=== PATIENT | female | born 1955 | race Caucasian/White ===

== ENCOUNTER 2021-09-18 09:10 | Day surgery (SDC) | payer MEDICARE ==
[2021-09-16 13:39] VITALS: BMI 32.4
[2021-09-18 09:49] LABS: Hemoglobin 13.2 g/dL (12.0-16.0)
[2021-09-18 10:17] LABS: Anion Gap 14 mmol/L (10-20); BUN (Urea Nitrogen) 16 mg/dL (9.8-20.1); Calc. Creatinine Clearance 97 mL/min (70-130); Calcium 9.3 mg/dL (7.8-10.44); Carbon Dioxide 23 mmol/L (23-31); Chloride 109 mmol/L (98-107); Glucose 102 mg/dL (80-115); Potassium 4.1 mmol/L (3.5-5.1); Sodium 142 mmol/L (136-145)
[2021-09-18] MEDS ORDERED: Ferric Subsulfate (ASTRINGYN) 8 GM VIAL ONE (10:52)
[2021-09-18] MEDS ORDERED: fentaNYL Citrate/PF 100 MCG/2 ML SYRINGE ONE ×2 (11:00→12:15)
[2021-09-18] MEDS ORDERED: Famotidine/PF 20 mg/2ml Vial ONE (11:00)
[2021-09-18] MEDS ORDERED: Ondansetron PF 4 MG/2 ML Vial ONE (11:09)
[2021-09-18] MEDS ORDERED: Metoprolol Tartrate 5 MG/5 ML VIAL ONE ×2 (11:09→11:55)
[2021-09-18] MEDS ORDERED: PROPOFOL 200 MG/20 ML VIAL ONE (11:09)
[2021-09-18] MEDS ORDERED: Metoclopramide HCl 10 MG/2 ML VIAL ONE (11:09)
[2021-09-18] MEDS ORDERED: Dexamethasone 20 MG/5 ML VIAL ONE (11:09)
[2021-09-18] MEDS ORDERED: PHENYLEPHRINE-NS 100 MCG/ML 10 ML SYRINGE ONE (11:09)
[2021-09-18] MEDS ORDERED: Lidocaine 1% PF 5 ML VIAL ONE (11:09)
[2021-09-18] MEDS ORDERED: Ketorolac Tromethamine 30 MG/ML VIAL ONE (11:09)
== END 2021-09-18 14:07 | disposition home or self-care (01) ==
LOC: SDC 09:10 → SURG A 09:23 → UNDOADMIN 09:23 → UNDODISIN 14:07 → SDC 14:07
PROVIDERS: ATTEND Specialist
PROC: 0CTPXZZ Resection of Tonsils, External Approach (ICD-10-PCS; principal; 2021-09-18)
DX: J35.01 Chronic tonsillitis (principal); J03.90 Acute tonsillitis, unspecified; G47.33 Obstructive sleep apnea (adult) (pediatric); I10 Essential (primary) hypertension; E11.9 Type 2 diabetes mellitus without complications; E03.9 Hypothyroidism, unspecified; F45.8 Other somatoform disorders; E66.9 Obesity, unspecified; Z68.32 Body mass index [BMI] 32.0-32.9, adult; Z79.4 Long term (current) use of insulin; Z79.84 Long term (current) use of oral hypoglycemic drugs; Z79.890 Hormone replacement therapy; Z79.899 Other long term (current) drug therapy
CPT/HCPCS: 80048; 85014; 85018; 88304; 93005; 93010; J1100; J1885; J2405; J2704; J2765; S0028